=== PATIENT | male | born 1995 | race African-American/Black ===

== ENCOUNTER 2020-11-14 08:32 | Emergency (ER) | payer MEDICAID, OTHER ==
[~2020-11-14] VITALS: Ht 185.4 cm; Wt 67.0 kg
[2020-11-14] MEDS ORDERED: ACETAMINOPHEN 325MG TABLET PO ONE (10:00)
[2020-11-14] MEDS ORDERED: IBUPROFEN 800MG TABLET PO ONE (10:00)
[2020-11-14 10:30] VITALS: BP 115/66
== END 2020-11-14 11:03 | disposition home or self-care (01) ==
LOC: ER 08:32
DX: S93.691A Other sprain of right foot, initial encounter (principal); X58.XXXA Exposure to other specified factors, initial encounter; Y93.89 Activity, other specified; Y92.89 Other specified places as the place of occurrence of the external cause; Y99.8 Other external cause status
CPT/HCPCS: 73630; 99283